=== PATIENT | female | born 1955 | race African-American/Black ===

== ENCOUNTER 2020-03-20 16:42 | Emergency (ER) | payer OTHER ==
[~2020-03-20] VITALS: Ht 165.1 cm; Wt 68.0 kg
[2020-03-20 18:45] VITALS: BP 120/70
== END 2020-03-20 19:14 | disposition left against medical advice (07) ==
LOC: ER 16:42 → EDBD 16:42 → ER 19:14
DX: S00.12XA Contusion of left eyelid and periocular area, initial encounter (principal); J34.2 Deviated nasal septum; I10 Essential (primary) hypertension; F19.10 Other psychoactive substance abuse, uncomplicated; Z53.29 Procedure and treatment not carried out because of patient's decision for other reasons; W01.0XXA Fall on same level from slipping, tripping and stumbling without subsequent striking against object, initial encounter; Y93.89 Activity, other specified; Y92.89 Other specified places as the place of occurrence of the external cause; Y99.8 Other external cause status
CPT/HCPCS: 70486; 93005; 99285